=== PATIENT | female | born 1970 | race Caucasian/White ===

== ENCOUNTER → 2022-10-20 08:56 | Outpatient (CLI) | payer BC, SELFPAY ==
--- NOTE | 2022-10-20 08:56 | US_ITS ---
FINAL REPORT CLINICAL HISTORY: pelvic pain and heavy bleeding FINDINGS: Transvaginal sonographic images of the pelvis were obtained. The uterus is at the upper limits of normal, measuring 8.9 x 5.5 x 4.0 cm. The endometrium measures 4 mm, which is within normal limits. There is a 3.2 cm heterogeneous area in the fundus which is likely a uterine fibroid. The right ovary measures 2.7 cm in length and left ovary measures 2.7 cm in length. Normal blood flow seen to the ovaries. Small follicles are present. There is no evidence of free fluid. IMPRESSION: No acute abnormality identified. Uterus measures at the upper limits of normal with a 3.2 cm heterogeneous area which is likely a fibroid. Reviewed, Interpreted and Dictated by Kenny Newman III, MD Transcribed by Klaudia Jaffe Authenticated and [facility]
== END ==
PROVIDERS: PCP Family Medicine; Visit Provider Obstetrics & Gynecology
DX: R10.2 Pelvic and perineal pain (principal); N92.1 Excessive and frequent menstruation with irregular cycle
CPT/HCPCS: 76830

== ENCOUNTER → 2023-04-09 09:30 | Outpatient (CLI) | payer BC, OTHER, SELFPAY ==
--- NOTE | 2023-04-09 09:30 | US_ITS ---
PROCEDURE: US TRANSVAGINAL CLINICAL INDICATION: palpable uterus on exam with irregular bleeding COMPARISON: US US TRANSVAGINAL from 10/20/2022 FINDINGS: Transvaginal sonographic images of the pelvis were obtained. UTERUS: 9.5 cm x 6.1 cmx 4.7 cm with a combined endometrial thickness of 12.7 mm. There is a fibroid at the fundus of the uterus measuring 3.2 cm x 3.6 cm. There are 2 nabothian cysts in the cervix measuring 8.7 mm and 12.9 mm. LEFT OVARY: 3.2 cmx1.8 cmx1.5cm with a volume of 4.7ml. RIGHT OVARY: 2.4 cmx 2.3 cmx1.8 cm with a volume of 5.1ml. There is a follicle on the right ovary measuring 9.6 mm Both ovaries are seen and appear normal. Doppler flow to both ovaries are seen. There is no fluid in the cul-de-sac. IMPRESSION: 1. Bulky anteverted uterus with a fundal fibroid measuring 3.2 cm x 3.6 cm. This has not appreciably increased in size since her last ultrasound 10/20/2022. There are 2 small nabothian cyst in the cervix. The endometrium is considerably thicker since her last ultrasound. 2. Both ovaries are seen and appear normal. 3. No fluid in the cul-de-sac. Dictated by: Reji Jones MD 04/10/2023 11:05 Reji Jones MD in OV 04/10/2023 11:05
== END ==
PROVIDERS: PCP Family Medicine; Visit Provider Obstetrics & Gynecology
DX: N93.9 Abnormal uterine and vaginal bleeding, unspecified (principal); D25.9 Leiomyoma of uterus, unspecified; N85.2 Hypertrophy of uterus; R10.2 Pelvic and perineal pain
CPT/HCPCS: 76830

== ENCOUNTER → 2023-04-21 14:47 | Outpatient (CLI) | payer BC, SELFPAY ==
[2023-04-21 16:22] LABS: Chloride 104 mmol/L (98-107); Potassium 4.5 mmoL/L (3.5-5.1); Sodium 140 mmol/L (136-145)
[2023-04-21 16:25] LABS: Alanine Aminotransferase 19 U/L (12-78); Albumin Level 4.3 g/dl (3.5-5.0); Albumin/Globulin Ratio 1.6 (1.1-1.8); Alkaline Phosphatase 59 U/L (38-126); Anion Gap 11.5 mEq/L (5-15); Aspartate Amino Transferase 24 U/L (14-36); Bilirubin,Total 0.4 mg/dl (0.2-1.3); Blood Urea Nitrogen 12 mg/dl (7-17); Calcium 9.7 mg/dl (8.4-10.2); Carbon Dioxide 29 mmol/L (22.0-30.0); Estimated Glomerular Filt Rate 88 ml/min (>60); GFR (African American) 106 ML/MIN (>60); Globulin 2.7 g/dL (1.3-3.2); Glucose 93 mg/dl (74-100)
[2023-04-21 16:42] LABS: HCG,Quantitative < 2 mIU/ml (0-5.42)
[2023-04-21 16:52] LABS: Basophils % 0.3 % (0.1-2.0); Eosinophils # 0.1 K/mm3 (0.0-0.4); Eosinophils % 1.5 % (0.1-12.0); Hematocrit 43.3 % (37.0-47.0); Hemoglobin 14.3 g/dL (12.2-16.2); Lymphocytes # 2.3 K/mm3 (0.7-4.5); Lymphocytes % 37.3 % (10-50); Mean Corpuscular HGB Conc 32.9 g/dL (31.8-35.4); Mean Corpuscular Hemoglobin 30.6 pg (27.0-31.2); Mean Corpuscular Volume 92.9 fl (81-99); Mean Platelet Volume 8.9 fl (7.4-10.4); Monocytes # 0.2 K/mm3 (0.1-1.0); Neutrophils # 3.5 K/mm3 (1.8-7.8); Neutrophils % 56.9 % (37.0-80.0); Platelet Count 235 K/mm3 (142-424); Red Blood Count 4.66 M/mm3 (4.20-5.40); Red Cell Distribution Width 12.9 % (11.5-17.5); White Blood Count 6.1 K/mm3 (4.8-10.8)
== END ==
PROVIDERS: PCP Obstetrics & Gynecology; Visit Provider Obstetrics & Gynecology
DX: Z01.812 Encounter for preprocedural laboratory examination (principal); N93.9 Abnormal uterine and vaginal bleeding, unspecified
CPT/HCPCS: 36415; 80053; 84702; 85025

== ENCOUNTER 2023-04-23 10:01 | Day surgery (SDC) | payer BC, OTHER, SELFPAY ==
[2023-04-22 09:13] VITALS: BMI 26.1
--- NOTE | 2023-04-22 09:16 | SUR.PREOP ---
Pt questioned whether or not she could take her Adipex (last dose was 04/21/23). Reviewed case with Sondra Hurst CRNA and he said the pt should not take her Adipex today or tomorrow, yesterday was fine. Information relayed back to pt and she verbalized understanding.
[2023-04-23] VITALS (8 sets, daily range): BP systolic 114–147; BP diastolic 69–85; PULSE 69–83; RESP 14–20; TEMP 36.2–36.6; O2SAT 97–99
--- NOTE | 2023-04-23 12:48 | EXP.ANES.I ---
[facility] Anesthesia Record Part I Anesthesia Record I Intake, IV Amount: 800 Hydration: Adequate Estimated blood loss (mL): 5 Urine output (mL): 75 Blood Products used (#): none Blood Pressure: 139/76 SaO2: 97 Pulse Rate: 83 Airway Patency: Patent Respiratory Rate: 18 Temperature: 98 F Patient is:: Drowsy and Stable
--- NOTE | 2023-04-23 12:49 | P.OP_ITS ---
Date of procedure: 04/23/23 Pre-op Diagnosis:: 1. Abnormal uterine bleeding 2. Fibroid uterus 3. Thickened endometrial stripe Post-op Diagnosis:: 1. Abnormal uterine bleeding 2. Fibroid uterus 3. Thickened endometrial stripe Procedure performed:: Hysteroscopy, dilation, and curettage with Myosure Surgeon:: Lu Velez DO ROTARY KILN OPERATOR:: Other (Marco A Lechuga) Anesthesia: GETA Estimated blood loss (mL): 5 Operative findings:: Findings: -EUA revealed an 8-week anteverted uterus with irregular contour. Grade 2 uterine descent with adequate mobility. No gross adnexal masses -Hysteroscopy revealed thin atrophic endometrium. Operative note:: The patient was taken back to the OR where general anesthesia was obtained.? She was placed in the dorsal lithotomy position using yellow fin stirrups and sterilely prepped and draped in the usual fashion.? An in and out catheter was used to drain her bladder.? A timeout was performed.? A weighted speculum was used to visualize this cervix, a single-tooth tenaculum was applied to the anterior lip of the cervix. The cervix was only slightly dilated to allow entry to the ectocervix and hydrodisection was used to get the scope the rest of the way into the cavity. The hysterscope was inserted and thin atrophic endometrium was noted as described above. Images were obtained of the cavity. Device set up, primed and zeroed. The device was used to collect endometrial curettings. A #2 sharp curette was introduced through the cervical os and gently advanced to the fundus.? The endometrial cavity was sharply curetted 360 degrees.? Endometrial curettings were collected on a Telfa pad, passed off the operative field and sent to pathology for further evaluation.? The single-tooth tenaculum was removed and hemostasis was noted at the tenaculum sites.? All instruments were r emoved from the vagina.? All counts were correct, per nursing.? This concluded the procedure, the patient was awakened from anesthesia, and transferred to the PACU in stable condition. Pt will be given toradol prior to leaving the OR. Condition: stable Disposition: PACU Specimens:: Endometrial curettings Complications:: None
--- NOTE | 2023-04-24 07:35 | EXP.ANES.II ---
[facility] Anesthesia Record Part II Anesthesia Record Part II Discharge Time: 13:15 Destination: Surgical Day Care (OP Surgery) PACU nurse assessment reviewed?: Yes Patient Condition:: Good Anesthesia Complications:: None Swallowing reflex intact?: Yes Airway Patency: Patent Cyanosis?: No Blood Pressure: 123/69 SaO2: 98 Respiratory Rate: 20 Pulse Rate: 70 Temperature: 97.1 F Mental Status: Alert & Oriented Pain level:: 0 Nausea and/or vomitting:: None Intake, IV Amount: 0 Hydration: Adequate
[2023-04-24 07:38] VITALS: BP 123/69; PULSE 70; RESP 20; TEMP 36.2; O2SAT 98
== END 2023-04-23 13:30 | disposition home or self-care (01) ==
PROVIDERS: PCP Family Medicine; Visit Provider Obstetrics & Gynecology
PROC: (CPT 58558; principal; 2023-04-23 11:45)
DX: N93.9 Abnormal uterine and vaginal bleeding, unspecified (principal); D25.9 Leiomyoma of uterus, unspecified; N85.8 Other specified noninflammatory disorders of uterus
CPT/HCPCS: 58558; J2405